=== PATIENT | male | born 1970 | race African-American/Black ===

== ENCOUNTER 2019-08-31 14:56 | Emergency (ER) | payer MEDICAID ==
[~2019-08-31] VITALS: Ht 177.8 cm; Wt 74.0 kg
[2019-08-31 17:09] LABS: CHLORIDE 109 mEq/L (98-107)
[2019-08-31 17:10] LABS: BASOPHILS % 0.8 % (0.0-2.0); EOSINOPHILS % 0.2 % (0.0-5.0); HEMATOCRIT. 43.3 % (42.0-52.0); HEMOGLOBIN. 14.4 g/dL (14.0-18.0); LYMPHOCYTES % 25.3 % (20.0-50.0); MEAN CORPUSCULAR HEMOGLOBIN 31.1 pg (28.0-32.0); MEAN CORPUSCULAR VOLUME 93.7 fL (80.0-94.0); MEAN PLATELET VOLUME 7.6 fl (7.4-10.4); MONOCYTES % 6.7 % (2.0-8.0); PLATELET 362 x1000/uL (130-400); RED BLOOD CELL COUNT 4.62 mill/uL (4.7-6.1); RED CELL DISTRIBUTION WIDTH 14.5 % (11.6-14.6)
[2019-08-31 17:13] LABS: ETHANOL BLOOD 200 mg/dL
[2019-08-31 21:03] LABS: CLARITY URINE CLEAR (CLEAR); COLOR URINE YELLOW (YELLOW); KETONES URINE TRACE (NEGATIVE); LEUKOCYTE ESTERASE URINE NEGATIVE (NEGATIVE); NITRITE URINE NEGATIVE (NEGATIVE); OCCULT BLOOD URINE NEGATIVE (NEGATIVE); PH URINE 5.5 (4.5-8.0); PROTEIN URINE NEGATIVE (NEGATIVE); SPECIFIC GRAVITY URINE 1.021 (1.005-1.030); UROBILINOGEN URINE 0.2 E.U./dL (0.2-1.0)
[2019-08-31 21:25] LABS: *AMPHETAMINES SCREEN URINE NEGATIVE (NEGATIVE); *BARBITURATES SCREEN URINE NEGATIVE (NEGATIVE); *BENZODIAZEPINES SCREEN URINE NEGATIVE (NEGATIVE)
[2019-08-31 21:26] LABS: *COCAINE SCREEN URINE PRESUMTIVE POSITIVE (NEGATIVE); CANNABINOID URINE SCREEN PRESUMTIVE POSITIVE (NEGATIVE); METHADONE URINE SCREEN NEGATIVE (NEGATIVE); OPIATES URINE SCREEN NEGATIVE (NEGATIVE); PHENCYCLIDINE URINE SCREEN NEGATIVE (NEGATIVE)
[2019-09-01] MEDS ORDERED: ACETAMINOPHEN 325MG TABLET PO ONE (00:15)
[2019-09-01] MEDS ORDERED: LORAZEPAM 2MG/ML CPJ IM ONE (07:30)
[2019-09-02 17:05] VITALS: BP 126/86
== END 2019-09-02 17:20 ==
LOC: ER 15:01
DX: R45.851 Suicidal ideations (principal); F10.129 Alcohol abuse with intoxication, unspecified; Y90.7 Blood alcohol level of 200-239 mg/100 ml; F14.10 Cocaine abuse, uncomplicated
CPT/HCPCS: 36415; 80305; 80307; 80320; 80329; 81003; 99284; G0480

== ENCOUNTER 2021-07-01 20:47 | Emergency (ER) | payer MEDICAID ==
[~2021-07-01] VITALS: Ht 177.8 cm; Wt 59.0 kg
[~2021-07-01 20:47] MED LIST: BACI28.32 TP; TOLN108P2 TP
[2021-07-02 00:05] LABS: BASOPHILS % 1.3 % (0.0-2.0); EOSINOPHILS % 1.6 % (0.0-5.0); HEMATOCRIT. 38.2 % (42.0-52.0); HEMOGLOBIN. 13.4 g/dL (14.0-18.0); LYMPHOCYTES % 18.7 % (20.0-50.0); MEAN CORPUSCULAR HEMOGLOBIN 31.8 pg (28.0-32.0); MEAN CORPUSCULAR VOLUME 90.8 fL (80.0-94.0); MEAN PLATELET VOLUME 8.3 fl (7.4-10.4); NEUTROPHILS % 65.4 % (40.0-76.0); PLATELET 586 x1000/uL (130-400); RED BLOOD CELL COUNT 4.21 mill/uL (4.7-6.1); RED CELL DISTRIBUTION WIDTH 13.9 % (11.6-14.6)
[2021-07-02 00:10] LABS: CHLORIDE 102 mEq/L (98-107)
[2021-07-02] MEDS ORDERED: SODIUM CHLORIDE 0.9% 1,000 ML IV ONE (00:30)
[2021-07-02] MEDS ORDERED: IOHEXOL-350 100 ML BOTTLE ONE (02:14)
[2021-07-02] MEDS ORDERED: AZIT250T12 MT (02:32)
[2021-07-02] MEDS ORDERED: BENZ-16 MT (02:32)
[2021-07-02 02:55] VITALS: BP 127/84
== END 2021-07-02 02:56 | disposition home or self-care (01) ==
LOC: ER 20:47
DX: J18.9 Pneumonia, unspecified organism (principal); U07.1 COVID-19; F41.9 Anxiety disorder, unspecified; F32.9 Major depressive disorder, single episode, unspecified; Z79.899 Other long term (current) drug therapy; Z20.822 Contact with and (suspected) exposure to COVID-19
CPT/HCPCS: 36415; 71045; 71275; 80053; 83880; 84484; 85025; 85379; 87426; 93005; 96360; 99285; Q9967

== ENCOUNTER 2021-07-10 15:06 | Inpatient (IN) | payer MEDICAID, OTHER ==
[~2021-07-10] VITALS: Ht 177.8 cm; Wt 81.9 kg
[~2021-07-10 15:06] MED LIST changes: +AZIT250T12 MT; +BENZ-16 MT
[2021-07-10] MEDS ORDERED: SODIUM CHLORIDE 0.9% 1,000 ML IV ONE ×2 (15:45→17:30)
[2021-07-10 16:00] LABS: BASOPHILS % 0.7 % (0.0-2.0); EOSINOPHILS % 0.4 % (0.0-5.0); HEMATOCRIT. 43.2 % (42.0-52.0); HEMOGLOBIN. 14.4 g/dL (14.0-18.0); LYMPHOCYTES % 18.8 % (20.0-50.0); MEAN CORPUSCULAR HEMOGLOBIN 30.4 pg (28.0-32.0); MEAN CORPUSCULAR VOLUME 91.3 fL (80.0-94.0); MEAN PLATELET VOLUME 7.6 fl (7.4-10.4); MONOCYTES % 6.1 % (2.0-8.0); PLATELET 823 x1000/uL (130-400); RED BLOOD CELL COUNT 4.73 mill/uL (4.7-6.1); RED CELL DISTRIBUTION WIDTH 14.3 % (11.6-14.6)
[2021-07-10 16:08] LABS: CHLORIDE 108 mEq/L (98-107)
[2021-07-10 16:11] LABS: ETHANOL BLOOD 32 mg/dL
[2021-07-10] MEDS ORDERED: ONDANSETRON HCL 4MG/2ML INJ IV STA (16:41)
[2021-07-10] MEDS ORDERED: MORPHINE SULFATE 4 MG/ML CPJ (NOT FOR IM USE) IV STA (16:41)
[2021-07-10] MEDS ORDERED: LIDOCAINE HCL 1% 20ML VIAL (Pyxis) INJ INFIL ONE (17:15)
[2021-07-10] MEDS ORDERED: MORPHINE SULFATE 4 MG/ML CPJ (NOT FOR IM USE) IV ONE (17:15)
[2021-07-10] MEDS ORDERED: MIDAZOLAM HCL 2 MG/2 ML VIAL IV ONE (17:15)
[2021-07-10] MEDS ORDERED: MORPHINE SULFATE 10 MG/ML CPJ IV ONE (18:00)
[2021-07-10 19:07] LABS: *AMPHETAMINES SCREEN URINE NEGATIVE (NEGATIVE); *BARBITURATES SCREEN URINE NEGATIVE (NEGATIVE); *BENZODIAZEPINES SCREEN URINE NEGATIVE (NEGATIVE); *COCAINE SCREEN URINE NEGATIVE (NEGATIVE); METHADONE URINE SCREEN NEGATIVE (NEGATIVE); OPIATES URINE SCREEN NEGATIVE (NEGATIVE); PHENCYCLIDINE URINE SCREEN NEGATIVE (NEGATIVE)
[2021-07-10 19:08] LABS: CANNABINOID URINE SCREEN PRESUMTIVE POSITIVE (NEGATIVE)
[2021-07-11] VITALS (17 sets, daily range): BP systolic 103–161; BP diastolic 63–116
[2021-07-11] MEDS ORDERED: IPRATROPIUM/ALBUTEROL 0.5-3(2.5)MG/3ML NEB HHN PRN (01:00)
[2021-07-11] MEDS ORDERED: CLONIDINE 0.1MG TABLET PO PRN (01:00)
[2021-07-11] MEDS ORDERED: ONDANSETRON HCL 4MG/2ML INJ IV PRN (01:00)
[2021-07-11] MEDS ORDERED: ENOXAPARIN 40MG/0.4ML SYR SUBCUT SCH ×2 (02:00→09:00)
[2021-07-11] MEDS: DEXT 5%/0.45% NACL 1000ML 1,000 ML IV SCH ×2 (02:00→15:20)
[2021-07-11] MEDS ORDERED: CEFTRIAXONE 1 G PREMIX 50 ML IV SCH (02:15)
[2021-07-11] MEDS ORDERED: NALOXONE HCL 0.4MG/ML VIAL IV PRN (03:30)
[2021-07-11] MEDS: CEFTRIAXONE 1,000 MG in DEXTROSE 5% WATER 50 ML IV SCH (05:00)
[2021-07-11 07:07] LABS: BASOPHILS % 0.2 % (0.0-2.0); HEMATOCRIT. 39.5 % (42.0-52.0); LYMPHOCYTES % 14.3 % (20.0-50.0); MEAN CORPUSCULAR VOLUME 91.1 fL (80.0-94.0); MEAN PLATELET VOLUME 7.6 fl (7.4-10.4); MONOCYTES % 8.4 % (2.0-8.0); NEUTROPHILS % 77.1 % (40.0-76.0); PLATELET 733 x1000/uL (130-400); RED BLOOD CELL COUNT 4.34 mill/uL (4.7-6.1); RED CELL DISTRIBUTION WIDTH 14.7 % (11.6-14.6)
[2021-07-11 07:10] LABS: CHLORIDE 102 mEq/L (98-107)
[2021-07-11] MEDS: PANTOPRAZOLE 40MG DR TABLET PO SCH (08:38)
[2021-07-11 11:43] LABS: BG BASE EXCESS 0.7 mmol/L (-2.0-2.0); BG CARBOXYHEMOGLOBIN 0.1 % (0.5-1.5); BG FRACTION INSPIRED OXYGEN 24; BG HCO3 ACT 25.7 mmol/L (22.0-26.0); BG METHEMOGLOBIN 0.3 % (0.0-1.5); BG OXYHEMOGLOBIN 94.6 % (94.0-97.0); BG PCO2 42.3 mmHg (35.0-45.0); BG PH 7.401 (7.350-7.450); BG PO2 73.6 mmHg (75.0-100.0); BG SAMPLE SITE LEFT RADIAL; BG TOTAL HEMOGLOBIN 13.5 g/dL (12.0-18.0); BG VENT MODE NASAL CANNULA
[2021-07-11 12:17] LABS: PROTHROMBIN TIME 10.7 sec (9.6-11.0)
[2021-07-11] MEDS ORDERED: LORAZEPAM 2MG/ML CPJ IV PRN (13:45)
[2021-07-11] MEDS ORDERED: LACTULOSE 20G/30ML UDC PO PRN (13:45)
[2021-07-11] MEDS ORDERED: HYDRALAZINE 20MG/ML VIAL IV PRN (13:45)
[2021-07-11 14:34] LABS: CLARITY URINE CLEAR (CLEAR); COLOR URINE YELLOW (YELLOW); KETONES URINE NEGATIVE (NEGATIVE); LEUKOCYTE ESTERASE URINE NEGATIVE (NEGATIVE); NITRITE URINE NEGATIVE (NEGATIVE); OCCULT BLOOD URINE NEGATIVE (NEGATIVE); PH URINE 5.5 (4.5-8.0); PROTEIN URINE NEGATIVE (NEGATIVE); SPECIFIC GRAVITY URINE 1.022 (1.005-1.030); UROBILINOGEN URINE 0.2 E.U./dL (0.2-1.0)
[2021-07-11] MEDS: AZITHROMYCIN 500 MG in DEXT 5% WATER 250 ML IV SCH (15:20)
[2021-07-11] MEDS: FUROSEMIDE 40MG/4ML VIAL IVP SCH (15:20)
[2021-07-12] VITALS (9 sets, daily range): BP systolic 117–144; BP diastolic 74–92
[2021-07-12] MEDS: DEXT 5%/0.45% NACL 1000ML 1,000 ML IV SCH (04:50)
[2021-07-12 06:28] LABS: BASOPHILS % 0.5 % (0.0-2.0); HEMATOCRIT. 36.8 % (42.0-52.0); HEMOGLOBIN. 12.5 g/dL (14.0-18.0); LYMPHOCYTES % 25.4 % (20.0-50.0); MEAN CORPUSCULAR HEMOGLOBIN 30.9 pg (28.0-32.0); MEAN CORPUSCULAR VOLUME 91.1 fL (80.0-94.0); MEAN PLATELET VOLUME 7.8 fl (7.4-10.4); MONOCYTES % 10.3 % (2.0-8.0); NEUTROPHILS % 63.8 % (40.0-76.0); PLATELET 641 x1000/uL (130-400); RED BLOOD CELL COUNT 4.04 mill/uL (4.7-6.1); RED CELL DISTRIBUTION WIDTH 14.4 % (11.6-14.6)
[2021-07-12 06:50] LABS: CHLORIDE 103 mEq/L (98-107)
[2021-07-12 07:02] LABS: LDL CHOLESTEROL 127 mg/dL (5-100)
[2021-07-12 07:04] LABS: HDL CHOLESTEROL 42 mg/dL (40-59)
[2021-07-12] MEDS: FUROSEMIDE 40MG/4ML VIAL IVP SCH (08:42)
[2021-07-12] MEDS: CEFTRIAXONE 1,000 MG in DEXTROSE 5% WATER 50 ML IV SCH (08:42)
[2021-07-12] MEDS: PANTOPRAZOLE 40MG DR TABLET PO SCH (08:42)
[2021-07-12] MEDS: MORPHINE SULFATE 4 MG/ML CPJ (NOT FOR IM USE) IV PRN ×3 (08:45→23:19)
[2021-07-12] MEDS: AZITHROMYCIN 500 MG in DEXT 5% WATER 250 ML IV SCH (14:58)
[2021-07-12] MEDS ORDERED: FAMOTIDINE 20MG TABLET PO SCH (21:00)
[2021-07-12] MEDS ORDERED: ATORVASTATIN CALCIUM 20MG TABLET PO SCH (21:00)
[2021-07-13] VITALS: BP 126/82
[2021-07-13 04:00] VITALS: BP 131/77
[2021-07-13 07:36] VITALS: BP 140/65
[2021-07-13] MEDS: MORPHINE SULFATE 4 MG/ML CPJ (NOT FOR IM USE) IV PRN ×2 (07:55→15:40)
[2021-07-13 08:07] LABS: BASOPHILS % 0.7 % (0.0-2.0); EOSINOPHILS % 0.1 % (0.0-5.0); HEMOGLOBIN. 13.7 g/dL (14.0-18.0); LYMPHOCYTES % 24.6 % (20.0-50.0); MEAN CORPUSCULAR HEMOGLOBIN 30.1 pg (28.0-32.0); MEAN PLATELET VOLUME 8.1 fl (7.4-10.4); MONOCYTES % 10.9 % (2.0-8.0); NEUTROPHILS % 63.7 % (40.0-76.0); PLATELET 595 x1000/uL (130-400); RED BLOOD CELL COUNT 4.56 mill/uL (4.7-6.1); RED CELL DISTRIBUTION WIDTH 14.8 % (11.6-14.6)
[2021-07-13 08:12] LABS: CHLORIDE 103 mEq/L (98-107)
[2021-07-13] MEDS: FUROSEMIDE 40MG/4ML VIAL IVP SCH (09:18)
[2021-07-13] MEDS: CEFTRIAXONE 1,000 MG in DEXTROSE 5% WATER 50 ML IV SCH (10:27)
[2021-07-13] MEDS ORDERED: AZITHROMYCIN 500 MG TABLET PO SCH (11:00)
[2021-07-13 12:00] VITALS: BP 125/82
[2021-07-13 16:00] VITALS: BP 131/80
[2021-07-13 16:45] VITALS: BP 131/80
== END 2021-07-13 18:36 | disposition home or self-care (01) | DRG 143 ==
LOC: ER 15:06 → MICUSO 19:44 → EDBEDREQ 19:48 → EDBEDREQTM 19:48 → EDBEDREQSVC 19:48 → 5EST 22:39
PROVIDERS: ADMIT Internal Medicine; ATTEND Internal Medicine
PROC: 0W9930Z Drainage of Right Pleural Cavity with Drainage Device, Percutaneous Approach (ICD-10-PCS; principal; 2021-07-10)
DX: J93.83 Other pneumothorax (principal); R65.10 Systemic inflammatory response syndrome (SIRS) of non-infectious origin without acute organ dysfunction; E87.1 Hypo-osmolality and hyponatremia; J45.901 Unspecified asthma with (acute) exacerbation; R04.2 Hemoptysis; F41.9 Anxiety disorder, unspecified; D64.9 Anemia, unspecified; E78.5 Hyperlipidemia, unspecified; F32.9 Major depressive disorder, single episode, unspecified; Y90.1 Blood alcohol level of 20-39 mg/100 ml; Z82.49 Family history of ischemic heart disease and other diseases of the circulatory system; J45.909 Unspecified asthma, uncomplicated; Z86.16 Personal history of COVID-19; Z20.822 Contact with and (suspected) exposure to COVID-19
CPT/HCPCS: 36415; 36600; 71045; 71250; 80048; 80053; 80061; 80305; 80320; 81003; 82375; 82805; 83880; 84443; 84484; 85025; 87426; 93005; 93306; 93970; 99291; J0456; J0696; J1650; J1940; J2060; J2250; J2270; J2405; J3490; J7030; J7042; J7060; U0003; U0005; G0480

== ENCOUNTER 2021-07-22 13:10 | Emergency (ER) | payer OTHER ==
[~2021-07-22] VITALS: Ht 177.8 cm; Wt 80.0 kg
[2021-07-22] MEDS ORDERED: ASPIRIN 325MG EC TABLET PO ONE (14:00)
[2021-07-22 14:06] LABS: BASOPHILS % 0.8 % (0.0-2.0); EOSINOPHILS % 0.5 % (0.0-5.0); HEMATOCRIT. 38.6 % (42.0-52.0); HEMOGLOBIN. 13.4 g/dL (14.0-18.0); LYMPHOCYTES % 21.1 % (20.0-50.0); MEAN CORPUSCULAR HEMOGLOBIN 31.3 pg (28.0-32.0); MEAN CORPUSCULAR VOLUME 89.9 fL (80.0-94.0); MEAN PLATELET VOLUME 7.9 fl (7.4-10.4); MONOCYTES % 8.5 % (2.0-8.0); NEUTROPHILS % 69.1 % (40.0-76.0); PLATELET 325 x1000/uL (130-400); RED BLOOD CELL COUNT 4.29 mill/uL (4.7-6.1); RED CELL DISTRIBUTION WIDTH 14.5 % (11.6-14.6)
[2021-07-22 14:09] LABS: CHLORIDE 107 mEq/L (98-107)
[2021-07-22 14:13] LABS: D-DIMER 1.46 mg/L FEU (<0.50); PROTHROMBIN TIME 10.4 sec (9.6-11.0)
[2021-07-22] MEDS ORDERED: IOHEXOL-350 100 ML BOTTLE ONE (19:05)
[2021-07-23 01:32] VITALS: BP 152/95
== END 2021-07-23 01:51 | disposition short-term general hospital (02) ==
LOC: ER 13:10 → EDBEDREQ 19:33 → ER 07-23 01:51 → CANBEDREQ 07-23 03:10
DX: R91.1 Solitary pulmonary nodule (principal); F41.9 Anxiety disorder, unspecified; F32.9 Major depressive disorder, single episode, unspecified; Z79.899 Other long term (current) drug therapy
CPT/HCPCS: 36415; 71045; 71275; 80053; 84484; 85025; 85379; 85610; 93005; 99285; Q9967